=== PATIENT | female | born 1940 | race Caucasian/White ===

== ENCOUNTER → 2016-11-26 | Outpatient (CLI) | payer MEDICARE ==
[~2016-11-26] MED LIST: ATOR10 PO; CEPH500C3 PO; ZOFR4TAB3 SL
[2016-11-26 08:01] LABS: HEMATOCRIT 42.5 % (35.0-46.0); MEAN CELL VOLUME 91.1 FL (80.0-100.0); MEAN CORPUSCULAR HEMOGLOBIN 30.4 PG (27.0-34.0); MEAN CORPUSCULAR HGB CONC 33.4 % (32.0-36.0); PLATELET COUNT 250 TH/MM3 (150-450); RED BLOOD COUNT 4.66 MIL/MM3 (4.00-5.30); RED CELL DISTRIBUTION WIDTH 13.5 % (11.6-17.2); REVIEW FLAG FINAL; WHITE BLOOD COUNT 4.9 TH/MM3 (4.0-11.0)
[2016-11-26 08:15] LABS: ALT (GPT) 22 U/L (10-53); ANION GAP 6 MEQ/L (5-15); BICARBONATE 29.9 MEQ/L (21.0-32.0); BLOOD UREA NITROGEN 17 MG/DL (7-18); CHLORIDE 105 MEQ/L (98-107); GLUCOSE,FASTING 93 MG/DL (74-99); SODIUM (NA) 141 MEQ/L (136-145)
[2016-11-26 08:23] LABS: ALKALINE PHOSPHATASE 62 U/L (45-117); AST (GOT) 21 U/L (15-37); GLOMERULAR FILTRATION RATE 67 ML/MIN (>89); TOTAL BILIRUBIN ADULT 0.4 MG/DL (0.2-1.0)
[2016-11-26 09:02] LABS: WESTERGREN SEDIMENTATION RATE 6 mm/hr (0-30)
== END ==
LOC: CLAB 07:11
PROVIDERS: ATTEND Internal Medicine Rheumatology
DX: M06.89 Other specified rheumatoid arthritis, multiple sites (principal); Z79.899 Other long term (current) drug therapy
CPT/HCPCS: 36415; 80053; 85027; 85652; 86140

== ENCOUNTER → 2017-02-07 | Outpatient (CLI) | payer MEDICARE | LOC: CLAB 07:30 | PROVIDERS: ATTEND Internal Medicine Sleep Medicine | DX: E88.01 Alpha-1-antitrypsin deficiency (principal) | CPT/HCPCS: 36415; 82103 ==

== ENCOUNTER → 2017-02-28 | Outpatient (CLI) | payer MEDICARE ==
[2017-02-28 07:44] LABS: HEMATOCRIT 38.9 % (35.0-46.0); MEAN CELL VOLUME 92.2 FL (80.0-100.0); MEAN CORPUSCULAR HEMOGLOBIN 30.6 PG (27.0-34.0); MEAN CORPUSCULAR HGB CONC 33.2 % (32.0-36.0); PLATELET COUNT 288 TH/MM3 (150-450); RED BLOOD COUNT 4.22 MIL/MM3 (4.00-5.30); RED CELL DISTRIBUTION WIDTH 14.2 % (11.6-17.2); REVIEW FLAG FINAL; WHITE BLOOD COUNT 6.2 TH/MM3 (4.0-11.0)
[2017-02-28 08:08] LABS: ALKALINE PHOSPHATASE 54 U/L (45-117); TOTAL BILIRUBIN ADULT 0.3 MG/DL (0.2-1.0)
[2017-02-28 08:11] LABS: ALT (GPT) 23 U/L (10-53); ANION GAP 4 MEQ/L (5-15); AST (GOT) 30 U/L (15-37); BICARBONATE 30.3 MEQ/L (21.0-32.0); BLOOD UREA NITROGEN 13 MG/DL (7-18); CHLORIDE 106 MEQ/L (98-107); GLOMERULAR FILTRATION RATE 63 ML/MIN (>89); GLUCOSE,FASTING 87 MG/DL (74-99); POTASSIUM 3.9 MEQ/L (3.5-5.1); SODIUM (NA) 140 MEQ/L (136-145)
[2017-02-28 08:16] LABS: WESTERGREN SEDIMENTATION RATE 9 mm/hr (0-30)
== END ==
LOC: CLAB 07:25
PROVIDERS: ATTEND Internal Medicine Rheumatology
DX: M06.89 Other specified rheumatoid arthritis, multiple sites (principal); Z79.899 Other long term (current) drug therapy
CPT/HCPCS: 36415; 80053; 85027; 85652; 86140

== ENCOUNTER → 2017-05-27 | Outpatient (CLI) | payer MEDICARE ==
[2017-05-27 10:13] LABS: HEMATOCRIT 41.1 % (35.0-46.0); MEAN CORPUSCULAR HEMOGLOBIN 31.5 PG (27.0-34.0); MEAN CORPUSCULAR HGB CONC 33.5 % (32.0-36.0); PLATELET COUNT 259 TH/MM3 (150-450); RED BLOOD COUNT 4.38 MIL/MM3 (4.00-5.30); RED CELL DISTRIBUTION WIDTH 13.2 % (11.6-17.2); REVIEW FLAG FINAL; WHITE BLOOD COUNT 7.7 TH/MM3 (4.0-11.0)
[2017-05-27 10:41] LABS: WESTERGREN SEDIMENTATION RATE 11 mm/hr (0-30)
[2017-05-27 10:42] LABS: ANION GAP 5 MEQ/L (5-15); AST (GOT) 21 U/L (15-37); BICARBONATE 30.4 MEQ/L (21.0-32.0); BLOOD UREA NITROGEN 16 MG/DL (7-18); CHLORIDE 107 MEQ/L (98-107); GLOMERULAR FILTRATION RATE 71 ML/MIN (>89); GLUCOSE,FASTING 89 MG/DL (74-99); POTASSIUM 4.1 MEQ/L (3.5-5.1); SODIUM (NA) 142 MEQ/L (136-145)
[2017-05-27 10:54] LABS: ALKALINE PHOSPHATASE 60 U/L (45-117); ALT (GPT) 22 U/L (10-53); TOTAL BILIRUBIN ADULT 0.3 MG/DL (0.2-1.0)
== END ==
LOC: CLAB 09:21
PROVIDERS: ATTEND Internal Medicine Rheumatology
DX: M06.89 Other specified rheumatoid arthritis, multiple sites (principal); Z79.899 Other long term (current) drug therapy
CPT/HCPCS: 36415; 80053; 85027; 85652; 86140

== ENCOUNTER → 2017-08-21 | Outpatient (CLI) | payer MEDICARE ==
[2017-08-21 08:04] LABS: AUTOMATED NEUTROPHIL # 3.4 TH/MM3 (1.8-7.7); BASOPHIL % 0.7 % (0.0-2.0); EOSINOPHIL # 0.3 TH/MM3 (0-0.4); EOSINOPHIL % 5.4 % (0.0-4.0); HEMATOCRIT 43.5 % (35.0-46.0); HEMO FLAGS DIFF FINAL; LYMPH % 22.3 % (9.0-44.0); LYMPHOCYTE # 1.3 TH/MM3 (1.0-4.8); MEAN CELL VOLUME 94.3 FL (80.0-100.0); MEAN CORPUSCULAR HEMOGLOBIN 31.2 PG (27.0-34.0); MEAN CORPUSCULAR HGB CONC 33.1 % (32.0-36.0); MONO % 13.5 % (0.0-8.0); NEUT % 58.1 % (16.0-70.0); PLATELET COUNT 237 TH/MM3 (150-450); RED BLOOD COUNT 4.62 MIL/MM3 (4.00-5.30); RED CELL DISTRIBUTION WIDTH 13.8 % (11.6-17.2); WHITE BLOOD COUNT 5.8 TH/MM3 (4.0-11.0)
[2017-08-21 08:22] LABS: ANION GAP 7 MEQ/L (5-15); AST (GOT) 25 U/L (15-37); BICARBONATE 26.6 MEQ/L (21.0-32.0); BLOOD UREA NITROGEN 12 MG/DL (7-18); CHLORIDE 106 MEQ/L (98-107); GLOMERULAR FILTRATION RATE 75 ML/MIN (>89); GLUCOSE,FASTING 98 MG/DL (74-99); POTASSIUM 3.8 MEQ/L (3.5-5.1); SODIUM (NA) 140 MEQ/L (136-145)
[2017-08-21 08:23] LABS: ALT (GPT) 24 U/L (10-53)
[2017-08-21 08:32] LABS: ALKALINE PHOSPHATASE 62 U/L (45-117); HDL CHOLESTEROL 98.7 MG/DL (40.0-60.0); LDL CHOLESTEROL 87 MG/DL (0-99); TOTAL BILIRUBIN ADULT 0.4 MG/DL (0.2-1.0)
== END ==
LOC: CLAB 07:36
PROVIDERS: ATTEND Family Medicine
DX: E78.5 Hyperlipidemia, unspecified (principal); R53.83 Other fatigue; M85.50 Aneurysmal bone cyst, unspecified site; E55.9 Vitamin D deficiency, unspecified; M85.80 Other specified disorders of bone density and structure, unspecified site
CPT/HCPCS: 36415; 80053; 80061; 82306; 84443; 85025

== ENCOUNTER → 2017-08-26 | Outpatient (CLI) | payer MEDICARE ==
[2017-08-26 07:51] LABS: HEMATOCRIT 43.2 % (35.0-46.0); MEAN CELL VOLUME 93.8 FL (80.0-100.0); MEAN CORPUSCULAR HEMOGLOBIN 31.1 PG (27.0-34.0); MEAN CORPUSCULAR HGB CONC 33.2 % (32.0-36.0); PLATELET COUNT 245 TH/MM3 (150-450); RED CELL DISTRIBUTION WIDTH 13.8 % (11.6-17.2); REVIEW FLAG FINAL; WHITE BLOOD COUNT 6.2 TH/MM3 (4.0-11.0)
[2017-08-26 08:13] LABS: WESTERGREN SEDIMENTATION RATE 14 mm/hr (0-30)
[2017-08-26 08:18] LABS: ALT (GPT) 24 U/L (10-53); ANION GAP 8 MEQ/L (5-15); AST (GOT) 29 U/L (15-37); BICARBONATE 26.5 MEQ/L (21.0-32.0); BLOOD UREA NITROGEN 13 MG/DL (7-18); CHLORIDE 106 MEQ/L (98-107); GLOMERULAR FILTRATION RATE 76 ML/MIN (>89); GLUCOSE,FASTING 93 MG/DL (74-99); POTASSIUM 3.6 MEQ/L (3.5-5.1); SODIUM (NA) 140 MEQ/L (136-145)
[2017-08-26 08:21] LABS: ALKALINE PHOSPHATASE 59 U/L (45-117); TOTAL BILIRUBIN ADULT 0.4 MG/DL (0.2-1.0)
== END ==
LOC: CLAB 07:20
PROVIDERS: ATTEND Internal Medicine Rheumatology
DX: M05.89 Other rheumatoid arthritis with rheumatoid factor of multiple sites (principal); Z79.899 Other long term (current) drug therapy
CPT/HCPCS: 36415; 80053; 85027; 85652; 86140

== ENCOUNTER → 2018-03-05 | Outpatient (CLI) | payer MEDICARE ==
[2018-03-05 07:43] LABS: HEMATOCRIT 40.9 % (35.0-46.0); HEMOGLOBIN 13.7 GM/DL (11.6-15.3); MEAN CELL VOLUME 95.2 FL (80.0-100.0); MEAN CORPUSCULAR HEMOGLOBIN 31.8 PG (27.0-34.0); MEAN CORPUSCULAR HGB CONC 33.4 % (32.0-36.0); MEAN PLATELET VOLUME 8.3 FL (7.0-11.0); PLATELET COUNT 270 TH/MM3 (150-450); RED BLOOD COUNT 4.29 MIL/MM3 (4.00-5.30); RED CELL DISTRIBUTION WIDTH 13.5 % (11.6-17.2); WHITE BLOOD COUNT 5.7 TH/MM3 (4.0-11.0)
[2018-03-05 08:06] LABS: WESTERGREN SEDIMENTATION RATE 9 mm/hr (0-30)
[2018-03-05 08:25] LABS: ALBUMIN 3.5 GM/DL (3.4-5.0); ALKALINE PHOSPHATASE 51 U/L (45-117); ALT (GPT) 26 U/L (10-53); AST (GOT) 33 U/L (15-37); BICARBONATE 27.1 MEQ/L (21.0-32.0); BLOOD UREA NITROGEN 12 MG/DL (7-18); CHLORIDE 107 MEQ/L (98-107); CREATININE 0.83 MG/DL (0.50-1.00); GLOMERULAR FILTRATION RATE 66 ML/MIN (>89); GLUCOSE,FASTING 92 MG/DL (74-99); SODIUM (NA) 141 MEQ/L (136-145); TOTAL BILIRUBIN ADULT 0.4 MG/DL (0.2-1.0); TOTAL PROTEIN 7.2 GM/DL (6.4-8.2)
== END ==
LOC: CLAB 07:18
PROVIDERS: ATTEND Internal Medicine Rheumatology
DX: M05.89 Other rheumatoid arthritis with rheumatoid factor of multiple sites (principal); Z79.899 Other long term (current) drug therapy
CPT/HCPCS: 36415; 80053; 85027; 85652